=== PATIENT | female | born 1960 | race Caucasian/White ===

== ENCOUNTER 2016-12-05 21:16 | Emergency (ER) | payer SELFPAY ==
[2016-12-05] MEDS ORDERED: SODIUM CHLORIDE 0.9% 500 ML IV ONE (21:40)
--- NOTE | 2016-12-05 21:40 | Emergency Department Record ---
History of Present Illness - General Chief Complaint: Arrythmia/Palpitations Stated Complaint: CHEST PAINS Time Seen by Provider: 12/05/16 21:35 Source: Patient, Family Mode of Arrival: EMS - History of Present Illness Initial Comments: Patient stats she has not been feeling right for 2 days. Today she was at work at [employer] and became SOB around 6:30 p.m., vomited, had a near syncopal episode, so her brought her here. She recently has been told she has htn and her PCP gave her Zestoretic low dose. Her first pill was taken yesterday morning. She denies cp, f,c,ap, slurred speech, but states "I just don 't feel right." Onset/Timin -: Days(s) Associated Symptoms: Diaphoresis, Nausea/vomiting, Near-syncope, Shortness of breath - Related Data Home Medications Medication Instructions Recorded Confirmed Last Taken Epinephrine [Epipen 2-Chucky] 0.3 mg IJ ASDIR PRN [email or web address] 01/21/16 12/05/16 Unknown Esomeprazole Magnesium [Nexium] 20 mg PO QD cap 01/21/16 12/05/16 12/05/16 Gabapentin [Neurontin] 100 mg PO TID 12/05/16 12/05/16 12/05/16 Allergies Allergy/AdvReac Type Severity Reaction Status Date / Time metoclopramide HCl Allergy Severe DIFFICULTY Verified 12/05/16 21:21 [From Reglan] BREATHING venom-honey bee Allergy Severe ANAPHYLAXIS Verified 12/05/16 21:21 [bee venom (honey bee)] Travel Screening - Travel/Exposure Within Last 30 Days Have you traveled within the last 30 days?: No - Travel Symptoms Symptom Screening: None Review of Systems Reviewed: No additional complaints except as noted below Constitutional: Reports: As per HPI. Denies: Chills, Fever, Malaise, Night sweats, Weakness, Weight change Eyes: Reports: As per HPI. Denies: Eye discharge, Eye pain, Photophobia, Vision change ENT: Reports: As per HPI. Denies: Congestion, Dental pain, Ear pain, Epistaxis , Hearing loss, Throat pain Respiratory: Reports: As per HPI. Denies: Cough, Dyspnea, Hemoptysis, Stridor, Wheezes Cardiovascular: Reports: As per HPI. Denies: Arrhythmia, Chest pain, Dyspnea on exertion, Edema, Murmurs, Orthopnea, Palpitations, Paroxysmal nocturnal dyspnea, Rheumatic Fever, Syncope Endocrine: Reports: As per HPI. Denies: Fatigue, Heat or cold intolerance, Polydipsia, Polyuria Gastrointestinal: Reports: As per HPI. Denies: Abdominal pain, Constipation, Diarrhea, Hematemesis, Hematochezia, Melena, Nausea, Vomiting Genitourinary: Reports: As per HPI. Denies: Abnormal menses, Discharge, Dyspareunia, Dysuria, Frequency, Hematuria, Incontinence, Retention, Urgency Musculoskeletal: Reports: As per HPI. Denies: Arthralgia, Back pain, Gout, Joint swelling, Myalgia, Neck pain Skin: Reports: As per HPI. Denies: Bruising, Change in color, Change in hair/ nails, Lesions, Pruritus, Rash Neurological: Reports: As per HPI. Denies: Abnormal gait, Confusion, Headache, Numbness, Paresthesias, Seizure, Tingling, Tremors, Vertigo, Weakness Psychiatric: Reports: As per HPI. Denies: Anxiety, Auditory hallucinations, Depression, Homicidal thoughts, Suicidal thoughts, Visual hallucinations Hematological/Lymphatic: Reports: As per HPI. Denies: Anemia, Blood Clots, Easy bleeding, Easy bruising, Swollen glands Past Medical History - SOCIAL HISTORY Smoking Status: Never smoker - RESPIRATORY Hx Respiratory Disorders: No - CARDIOVASCULAR Hx Cardio Disorders: Yes Hx Irregular Heartbeat: Yes - NEURO Hx Neuro Disorders: No - GI Hx GI Disorders: Yes Hx Reflux: Yes Hx Irritable Bowel: Yes - Hx Genitourinary Disorders: No - ENDOCRINE Hx Endocrine Disorders: No - MUSCULOSKELETAL Hx Musculoskeletal Disorders: Yes Hx Arthritis: Yes - PSYCH Hx Psych Problems: No - HEMATOLOGY/ONCOLOGY Hx Hematology/Oncology Disorders: No Family Medical History Any Significant Family History?: Yes Hx Heart Disease: Father, Mother Hx Kidney Disease: Father Hx Stroke: Father Physical Exam - General General Appearance: Alert, Oriented x3, Cooperative, No acute distress, Mild distress (laying very still, responds appropriately, "dosn't feel well.) - Head Head exam: Normal inspection - Eye Eye exam: Normal appearance, PERRL Pupils: Normal accommodation - ENT ENT exam: Normal exam, Mucous membranes moist, Normal external ear exam, Normal orophraynx, TM's normal bilaterally Ear exam: Normal external inspection. negative: External canal tenderness Nasal Exam: Normal inspection. negative: Discharge, Sinus tenderness Mouth exam: Normal external inspection, Tongue normal Teeth exam: Normal inspection. negative: Dental caries Throat exam: Normal inspection. negative: Tonsillar erythema, Tonsillar exudate - Neck Neck exam: Normal inspection, Full ROM. negative: Tenderness - Respiratory Respiratory exam: Normal lung sounds bilaterally. negative: Respiratory distress - Cardiovascular Cardiovascular Exam: Regular rate, Normal rhythm, Normal heart sounds - GI/Abdominal GI/Abdominal exam: Soft, Normal bowel sounds. negative: Tenderness - Rectal Rectal exam: Deferred - exam: Deferred - Extremities Extremities exam: Normal inspection, Full ROM, Normal capillary refill. negative: Tenderness - Back Back exam: Reports: Normal inspection, Full ROM. Denies: Muscle spasm, Rash noted, Tenderness - Neurological Neurological exam: Alert, Normal gait, Oriented X3, Reflexes normal - Psychiatric Psychiatric exam: Normal affect, Normal mood - Skin Skin exam: Dry, Intact, Normal color, Warm Course Vital Signs 12/05/16 21:23 Temperature 97.5 F L Pulse Rate [ 69 Clinical Psychiatrist ] Respiratory 26 H Rate Blood Pressure 105/58 [Left Arm] Pulse Ox 98 - Reevaluation(s) Reevaluation #1: Patient was unaware that she had any kidney problems, but she states that her mother did have kidney problems. She is requesting to go to [facility] if transferred. 12/05/16 23:41 Reevaluation #2: [facility] attending who accepts patient in transfer for VQ scan. 12/06/16 00:28 Medical Decision Making - Management Options [facility] Management: Additional Work-up Planned (e.g. ADM/Transfer/OP Study) ( Transfer to [address] E[address] for VQ Scan.) - Data Complexity MDM Data: Labs Ordered and/or Reviewed (BUN 29, CR 1.6 D-Dimer 1.11), EKG Ordered and/or Reviewed - Lab Data Result diagrams: 12/05/16 22:08 12/05/16 22:08 - EKG Data -: EKG Interpreted by Dc EKG: No Acute Changes (wqandering baseline, sinus rhythm, no acute ST elevation , no prior available.) Disposition Disposition: Transfer Clinical Impression: D-dimer, elevated, Renal insufficiency, mild, Near syncope Dyspnea, unspecified Qualifiers: Dyspnea type: unspecified Qualified Code(s): R06.00 - Dyspnea, unspecified UTI (urinary tract infection) Qualifiers: Urinary tract infection type: acute cystitis Hematuria presence: without hematuria Qualified Code(s): N30.00 - Acute cystitis without hematuria Nausea and vomiting Qualifiers: Vomiting type: unspecified Vomiting Intractability: non-intractable Qualified Code(s): R11.2 - Nausea with vomiting, unspecified Disposition: Acute Care Hospital Transfer Transfer To: [facility] Emergency Reason For Transfer: VQ Scan Accepting Physician: emergency dept. Time Discussed w/Accepting Physician: 00:31 Condition: (1) Good Forms: Patient Portal Access Quality - Quality Measures Quality Measures: N/A - Blood Pressure Screening Blood Pressure Classification: Normal BP Reading Systolic Measurement: 108 Diastolic Measurement: 60 Screening for High Blood Pressure: < Normal BP, F/U Not Required > [[id number]] Normal BP Follow-up Interventions: No follow-up required
[2016-12-05] MEDS ORDERED: ONDANSETRON HCL IV 4 MG/2 ML VIAL IVP ONE (21:46)
[2016-12-05 22:16] LABS: BASO % 0.3 % (0-6); EOS % 0.4 % (0-6); HEMATOCRIT 36.6 % (35.0-47.0); HEMOGLOBIN 12.2 gm/dl (11.6-16.0); LYMPH % 12.7 % (16-45); MEAN CORPUSCULAR HEMOGLOBIN 30.3 pg (27-33); MEAN CORPUSCULAR HGB CONC 33.3 g/dl (32-36); MEAN PLATELET VOLUME 11.6 fl (7.4-10.4); MONO % 7.6 % (0-9); PLATELET COUNT 217 K/uL (130-400); RED BLOOD COUNT 4.02 M/uL (3.80-5.40); RED CELL DISTRIBUTION WIDTH 13.4 % (11.5-14.5); WHITE BLOOD COUNT W/O DIFF 11.3 K/uL (4.2-12.2)
[2016-12-05 22:37] LABS: LACTIC ACID 0.9 mmol/L (0.7-2.1)
[2016-12-05 22:55] LABS: BLOOD UREA NITROGEN 29 mg/dL (7-17); CREATININE 1.6 mg/dL (0.52-1.04); EST GLOMERULAR FILTRATION RATE 35 ml/min; GLUCOSE,RANDOM 111 mg/dL (70-110); TROPONIN I < 0.012 ng/mL (0.00-0.034)
[2016-12-05] MEDS ORDERED: 0.9 % SODIUM CHLORIDE 1,000 ML BAG IV ONE (23:44)
[2016-12-05 23:56] LABS: URINE APPEARANCE CLEAR; URINE BILIRUBIN NEGATIVE (NEGATIVE); URINE BLOOD NEGATIVE (NEGATIVE); URINE COLOR YELLOW; URINE GLUCOSE (UA) NEGATIVE (NEGATIVE); URINE KETONE NEGATIVE (NEGATIVE); URINE LEUKOCYTE ESTERASE MODERATE (NEGATIVE); URINE NITRITE NEGATIVE (NEGATIVE); URINE PROTEIN NEGATIVE (NEGATIVE); URINE UROBILINOGEN 0.2 E.U./dL (0.20 - 1.00)
[2016-12-06 00:11] LABS: URINE BACTERIA 2+; URINE EPITHELIAL CELLS 0 - 2 (FEW); URINE MUCUS LIGHT; URINE RBC 0 - 2 (NONE SEEN)
[2016-12-06] MEDS ORDERED: CIPROFLOXACIN HCL 500 MG TABLET PO ONE (00:22)
--- NOTE | 2016-12-07 13:21 | RADIOLOGY REPORT ---
EXAM: CHEST HISTORY: DIZZINESS AND WEAKNESS. TECHNIQUE: A single view of the chest were obtained. Comparison: None. FINDINGS: The heart is not enlarged. No mediastinal mass. No acute infiltrate or vascular congestion. IMPRESSION: NO ACUTE CARDIAC OR PULMONARY ABNORMALITY. JOB NUMBER: [id number] MTDD
--- NOTE | 2016-12-07 13:23 | CT SCAN REPORT ---
EXAM: HEAD CT HISTORY: DIZZINESS. TECHNIQUE: Noncontrast head CT was obtained. Comparison: None. FINDINGS: The ventricles and subarachnoid spaces are unremarkable. No mass or mass effect. No intra or extraaxial hemorrhage. No CT evidence for large acute territorial infarct. No fracture or acute osseous abnormality. IMPRESSION: UNREMARKABLE HEAD CT. JOB NUMBER: [id number] MTDD
== END 2016-12-06 01:21 | disposition short-term general hospital (02) ==
LOC: ER 21:16
DX: R79.89 Other specified abnormal findings of blood chemistry (principal); N28.9 Disorder of kidney and ureter, unspecified; R55 Syncope and collapse; N30.00 Acute cystitis without hematuria; R06.02 Shortness of breath; R11.2 Nausea with vomiting, unspecified; R61 Generalized hyperhidrosis
CPT/HCPCS: 70450; 71010; 80048; 81001; 83605; 84484; 85025; 85379; 93005; 93010; 96360; 99285